=== PATIENT | female | born 1970 | race Two or more races ===

== ENCOUNTER 2017-04-04 10:46 | Emergency (ER) | payer OTHER ==
[~2017-04-04] VITALS: Ht 165.1 cm; Wt 68.0 kg
[2017-04-04 11:08] VITALS: BP 107/66
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
[2017-04-04] MEDS ORDERED: TRAM-48 PO (13:07)
[2017-04-04] MEDS ORDERED: METH-37 PO (13:07)
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
== END 2017-04-04 13:28 | disposition home or self-care (01) ==
LOC: ER 10:46
DX: S52.002A Unspecified fracture of upper end of left ulna, initial encounter for closed fracture (principal); S13.4XXA Sprain of ligaments of cervical spine, initial encounter; S40.012A Contusion of left shoulder, initial encounter; V43.52XA Car driver injured in collision with other type car in traffic accident, initial encounter; Y93.I9 Activity, other involving external motion; Y92.481 Parking lot as the place of occurrence of the external cause; Y99.8 Other external cause status
CPT/HCPCS: 72040; 73030; 73080; 99284

== ENCOUNTER 2018-05-23 11:31 | Emergency (ER) | payer SELFPAY ==
[~2018-05-23] VITALS: Ht 165.1 cm; Wt 77.1 kg
[~2018-05-23 11:31] MED LIST: METH-37 PO; TRAM-48 PO
[2018-05-23 11:44] VITALS: BP 118/55
[2018-05-23] MEDS ORDERED: CEPH500T PO (12:15)
[2018-05-23] MEDS ORDERED: MUPI22OI2 TP (12:15)
--- NOTE | 2018-05-23 12:15 | PHYS DOC ---
Past Medical History Past Medical History: No Pertinent History Past Surgical History: No Surgical History Alcohol Use: None Drug Use: None Adult General Chief Complaint Chief Complaint: SKIN RASH/ABSCESS HPI HPI Patient is a 48 year old female who presents to the ER with complaints of a rash on bilateral wrists that itches since yesterday. She denies any new environmental exposures, medications, foods, or detergents. She states that this morning she noticed the redness is spreading to her face. Pt denies any SOA , cough, congestion, or wheezing. She states that the only animal she has been around is her cat. Review of Systems Review of Systems Constitutional: Denies fever or chills [] Eyes: Denies change in visual acuity, redness, or eye pain [] HENT: Denies nasal congestion or sore throat, see HPI[] Respiratory: Denies cough or shortness of breath [] Integument: See HPI Neurologic: Denies headache, focal weakness or sensory changes [] All other systems were reviewed and found to be within normal limits, except as documented in this note. Allergies Allergies Allergies Coded Allergies Type Severity Reaction Last Updated Verified No Known Drug Allergies 04/04/17 No Physical Exam Physical Exam Constitutional: Well developed, well nourished, no acute distress, non-toxic appearance. [] HENT: Normocephalic, atraumatic, bilateral external ears normal, oropharynx moist, no oral exudates, nose normal. [] Eyes: PERRLA, conjunctiva normal, no discharge. [] Cardiovascular:Heart rate regular rhythm, no murmur [] Lungs & Thorax: Bilateral breath sounds clear to auscultation [] Skin: Warm, dry; honey crusted erythremic bullous lesions noted to bilateral wrists, red raised patches on face, consistent with impetigo Extremities: No tenderness, no cyanosis, no clubbing, ROM intact, no edema. [] Neurologic: Alert and oriented X 3, normal motor function, normal sensory function, no focal deficits noted. [] Psychologic: Affect normal, judgement normal, mood normal. [] Current Patient Data Vital Signs Vital Signs Date Time Temp Pulse Resp B/P (MAP) Pulse Ox O2 Delivery O2 Flow Rate FiO2 05/23/18 11:44 98.2 76 16 118/55 (76) 98 Room Air 98.2 EKG EKG [] Radiology/Procedures Radiology/Procedures [] Course & Med Decision Making Course & Med Decision Making Pertinent Labs and Imaging studies reviewed. (See chart for details) [] Dragon Disclaimer Dragon Disclaimer This electronic medical record was generated, in whole or in part, using a voice recognition dictation system. Departure Departure Impression: Primary Impression: Impetigo any site Disposition: HOME, SELF-CARE Condition: STABLE Referrals: DELISA LYNN DO (PCP) Patient Instructions: Impetigo Additional Instructions: Keep fingernails trimmed short, apply antibiotic ointment underneath nails in addition to rashy areas. Follow up with PCP next week, return to ER if symptoms worsen. Scripts Mupirocin (MUPIROCIN OINTMENT) 22 Gm Oint...g. 1 ARQUEL TP TID for WOUND CARE for 5 Days, #1 TUBE 0 Refills Prov: SARABJIT SOLIS KARATE TEACHER 05/23/18 Cephalexin (CEPHALEXIN) 500 Mg Tablet 1 TAB PO BID for 7 Days, #14 TAB Prov: SARABJIT SOLIS KARATE TEACHER 05/23/18 SARABJIT SOLIS KARATE TEACHER May 23, 2018 12:15
== END 2018-05-23 12:25 | disposition home or self-care (01) ==
LOC: ER 11:31
DX: L01.03 Bullous impetigo (principal)
CPT/HCPCS: 99283